=== PATIENT | male | born 1980 | race Caucasian/White ===

== ENCOUNTER 2018-03-16 00:39 | Outpatient (CLI) | payer OTHER, SELFPAY ==
--- NOTE | 2018-03-16 13:07 | DI.RAD_ITS ---
SYMPTOMS/DIAGNOSIS: RIGHT HIP PAIN, M25.551 PELVIS AND RIGHT HIP: The hip joint spaces are well maintained. The SI joints and pubic symphysis are unremarkable. No tendon or joint space calcifications are seen. IMPRESSION: Negative pelvis and right hip.
[2018-03-16 13:53] LABS: Hemoglobin A1C 6.6 % (4.5-6.2)
[2018-03-16 14:04] LABS: CREATININE 1.06 mg/dL (0.70-1.30)
== END 2018-03-16 00:59 ==
PROVIDERS: PCP Family Medicine; Visit Provider Family Medicine
DX: M25.551 Pain in right hip (principal); Z11.9 Encounter for screening for infectious and parasitic diseases, unspecified
CPT/HCPCS: 36415; 73502; 82565; 83036

== ENCOUNTER 2018-10-13 09:12 | Outpatient (CLI) | payer OTHER, SELFPAY ==
[2018-10-15 05:16] LABS: Hemoglobin A1C 5.6 % (4.5-6.2)
[2018-10-15 05:22] LABS: COMMENT (LAB VIEW ONLY) 109.44 mg/dL; Microalb ug/mg Crea 10.6 ug/mg Cr
== END 2018-10-13 09:32 ==
PROVIDERS: PCP Family Medicine; Visit Provider Family Medicine
DX: E11.9 Type 2 diabetes mellitus without complications (principal)
CPT/HCPCS: 36415; 82043; 82570; 83036

== ENCOUNTER 2018-10-22 01:32 | Outpatient (CLI) | payer OTHER, SELFPAY ==
--- NOTE | 2018-10-22 11:09 | DI.US_ITS ---
SYMPTOMS/DIAGNOSIS: CHRONIC RT LATERAL ABD PAIN, R10.9, PAIN RADIATES TO INGUINAL REGION ULTRASOUND OF THE RIGHT GROIN: No hernia is demonstrated. There is a mildly enlarged but normal appearing right groin lymph node, likely reactive. No fluid collection is seen. IMPRESSION: 2.4 cm right inguinal lymph node. No hernia is demonstrated.
== END 2018-10-22 01:52 ==
PROVIDERS: PCP Family Medicine; Visit Provider Family Medicine
DX: R10.31 Right lower quadrant pain (principal); R59.0 Localized enlarged lymph nodes
CPT/HCPCS: 76857

== ENCOUNTER 2019-04-13 07:28 | Outpatient (CLI) | payer OTHER, SELFPAY ==
[2019-04-13 11:05] LABS: CREATININE 1.07 mg/dL (0.70-1.30)
[2019-04-15 04:55] LABS: Hemoglobin A1C 6.9 % (4.5-6.2)
== END 2019-04-13 07:48 ==
PROVIDERS: PCP Family Medicine; Visit Provider Family Medicine
DX: E11.9 Type 2 diabetes mellitus without complications (principal)
CPT/HCPCS: 82565; 83036

== ENCOUNTER 2019-10-29 01:54 | Outpatient (CLI) | payer OTHER, SELFPAY ==
[2019-10-29 17:12] LABS: Hemoglobin A1C 6.8 % (3.8-5.6)
== END 2019-10-29 02:14 ==
PROVIDERS: PCP Family Medicine; Visit Provider Family Medicine
DX: R73.9 Hyperglycemia, unspecified (principal)
CPT/HCPCS: 36415; 83036

== ENCOUNTER 2020-04-14 09:28 | Outpatient (REF) | payer OTHER, SELFPAY ==
[2020-04-14 13:26] LABS: Hemoglobin A1C 7.4 % (<5.7)
[2020-04-14 13:27] LABS: CREATININE 1.09 mg/dL (0.70-1.30); Calculated LDL 83 mg/dL (<100); Cholesterol 145 mg/dL (<200); HDL Cholesterol 42 mg/dL (40-60); Triglyceride 104 mg/dL (<150)
[2020-04-14 13:33] LABS: Microalb ug/mg Crea 15.2 ug/mg Cr
== END 2020-04-14 09:48 ==
LOC: LBN 09:28
PROVIDERS: PCP Family Medicine; Visit Provider Family Medicine
DX: E78.5 Hyperlipidemia, unspecified (principal); I10 Essential (primary) hypertension; E11.9 Type 2 diabetes mellitus without complications
CPT/HCPCS: 80061; 82043; 82565; 82570; 83036

== ENCOUNTER 2020-04-14 13:11 | Outpatient (REF) | payer OTHER, SELFPAY ==
[2020-04-14 15:25] LABS: Bacteria Negative HPF (Negative); C & S Indicated? No; Casts Negative LPF (Negative); Crystals Negative HPF (Negative); Epithelial Cells Negative HPF (Negative); Mucus Negative (Negative); RBC Negative HPF (0-2); WBC Negative HPF (0-5)
== END 2020-04-14 13:31 ==
LOC: NCHCN 13:11
PROVIDERS: PCP Family Medicine; Visit Provider Family Medicine
DX: R10.9 Unspecified abdominal pain (principal)
CPT/HCPCS: 81015

== ENCOUNTER 2020-09-11 03:02 | Outpatient (CLI) | payer BC, SELFPAY ==
[2020-09-12 13:44] LABS: COVID-19 RT-PCR UVMMC Result Negative (Negative)
== END 2020-09-11 03:03 | disposition home or self-care (01) ==
LOC: LBO 03:02
PROVIDERS: PCP Family Medicine; Visit Provider Family Medicine
DX: Z20.828 Contact with and (suspected) exposure to other viral communicable diseases (principal)
CPT/HCPCS: U0003

== ENCOUNTER 2020-10-20 12:45 | Outpatient (REF) | payer BC, SELFPAY ==
[2020-10-20 13:16] LABS: Potassium 4.5 mmol/L (3.5-5.1)
== END 2020-10-20 12:46 | disposition home or self-care (01) ==
LOC: LBN 12:45
PROVIDERS: PCP Family Medicine; Visit Provider Family Medicine
DX: I10 Essential (primary) hypertension (principal)
CPT/HCPCS: 84132

== ENCOUNTER 2021-11-25 03:18 | Outpatient (CLI) | payer OTHER, SELFPAY ==
[2021-11-25 12:50] LABS: Calculated LDL 74 mg/dL (<100); Cholesterol 142 mg/dL (<200); HDL Cholesterol 52 mg/dL (40-60); Potassium 5.1 mmol/L (3.5-5.1); Triglyceride 83 mg/dL (<150)
[2021-11-25 12:54] LABS: COMMENT (LAB VIEW ONLY) 171.87 mg/dL; Microalb ug/mg Crea 5.8 ug/mg Cr
== END 2021-11-25 03:19 | disposition home or self-care (01) ==
LOC: LOS 03:18
PROVIDERS: PCP Family Medicine; Visit Provider Family Medicine
DX: I10 Essential (primary) hypertension (principal); E78.5 Hyperlipidemia, unspecified; E11.9 Type 2 diabetes mellitus without complications
CPT/HCPCS: 36415; 80061; 82043; 82565; 82570; 84132

== ENCOUNTER 2023-03-15 08:44 | Outpatient (CLI) | payer BC, SELFPAY ==
[2023-03-15 12:43] LABS: CREATININE 1.1 mg/dL (0.70-1.30); Calculated LDL 83 mg/dL (<100); Cholesterol 151 mg/dL (<200); Estimated GFR 85.42 (mL/min/1.73m2); HDL Cholesterol 48 mg/dL (40-60); Potassium 4.2 mmol/L (3.5-5.1); Triglyceride 101 mg/dL (<150)
== END 2023-03-15 08:45 | disposition home or self-care (01) ==
LOC: LOS 08:44
PROVIDERS: PCP Family Medicine; Referring Provider Family Medicine; Visit Provider Family Medicine
DX: I10 Essential (primary) hypertension (principal); E78.5 Hyperlipidemia, unspecified
CPT/HCPCS: 36415; 80061; 82565; 84132

== ENCOUNTER 2023-03-15 09:59 | Outpatient (REF) | payer BC, SELFPAY ==
[2023-03-15 13:27] LABS: COMMENT (LAB VIEW ONLY) 20.94 mg/dL; Microalb ug/mg Crea 11.5 ug/mg Cr
== END 2023-03-15 10:00 | disposition home or self-care (01) ==
LOC: LBN 09:59
PROVIDERS: PCP Family Medicine; Visit Provider Family Medicine
DX: E11.9 Type 2 diabetes mellitus without complications (principal)
CPT/HCPCS: 82043; 82570

== ENCOUNTER 2024-09-24 15:27 | Outpatient (REF) | payer OTHER, SELFPAY ==
[2024-09-24 22:16] LABS: COMMENT (LAB VIEW ONLY) 143.75 mg/dL; Microalb ug/mg Crea 9.5 ug/mg Cr
== END 2024-09-24 15:28 | disposition home or self-care (01) ==
LOC: LBN 15:27
PROVIDERS: PCP Family Medicine; Visit Provider Family Medicine
DX: E11.9 Type 2 diabetes mellitus without complications (principal)
CPT/HCPCS: 82043; 82570